=== PATIENT | female | born 1990 | race Caucasian/White ===

== ENCOUNTER 2017-10-02 09:52 | Emergency (ER) | payer OTHER, SELFPAY ==
[2017-10-02 10:07] VITALS: BP 99/43; PULSE 74; RESP 18; TEMP 36.7; O2SAT 99; BMI 39.9
--- NOTE | 2017-10-02 10:23 | XR_ITS ---
XR chest 2V HISTORY: ITS.REASON: NEAR SYNCOPE, HYPOTENSION ORDERING PHYSICIAN: Asael Wu MD PATIENT AGE: 27 years COMPARISON: 01/11/2017 FINDINGS: The cardiomediastinal silhouette and pulmonary vascularity are within normal limits. The lungs are clear without infiltrates, suspicious nodules, or pleural effusions. No acute bony abnormalities. IMPRESSION: Negative chest, no acute finding
--- NOTE | 2017-10-02 10:26 | PC.NURSE ---
ORTHOSTATIC VITAL SIGNS REPORTED TO MD SITTING BP 112/61 HR 80 STANDING BP 110/62 HR 90 SUPINE BP 99/43 HR 72
[2017-10-02 10:29] LABS: Microscopic, Urine URINE MICROSCOPIC (MICROSCOPIC)
--- NOTE | 2017-10-02 10:30 | HMH.EDGENADL ---
ED Disposition Clinical Impression: Dizziness Disposition: Home, Self-Care Condition on Discharge: Good Instructions: DI for Dizziness-Nonvertigo Additional Instructions: Do not take propranolol until you speak with your physician. Call them today and let them know that your blood pressure is borderline low and you are dizzy and have them determine whether they want to continue this medication. Rest today, drink plenty of fluids. Forms: Work/School Release - Critical Care Critical Care Time: No Attestation: On 10/02/17, the high probability of a clinically significant, sudden or life threatening deterioration of the following system(s) required my full and direct attention, intervention and personal management. The time I documented below is in addition to time spent performing reported procedures but includes the following listed in this critical care notation. Medical Decision Making Vital Signs: 10/02/17 10:07 10/02/17 11:56 Temperature 98.1 F 98.2 F Temperature Source Oral Oral Pulse Rate [Right Brachial] 74 58 L Respiratory Rate 18 16 Blood Pressure [Right Arm] 99/43 111/53 Blood Pressure Mean [Right Arm] 61 72 Blood Pressure Source [Right Arm] Automatic Cuff Automatic Cuff Blood Pressure Position [Right Arm] Sitting Sitting 02 Sat by Pulse Oximetry 99 98 Oxygen Delivery Method Room Air Room Air - Lab Data Lab Results 10/02/17 10:21: Urine Color Yellow, Urine Appearance Sl cloudy, Urine pH 5.5, Ur Specific [place] >= 1.030, Urine Protein 1+, Urine Glucose (UA) Negative, Urine Ketones 1+, Urine Blood Negative, Urine Nitrate Negative, Urine Bilirubin Negative, Urine Urobilinogen 0.2, Ur Leukocyte Esterase Negative, Urine RBC Occasional, Urine WBC Occasional, Ur Squamous Epith Cells 5-10, Urine Bacteria 1+, Hyaline Casts 10-20, Urine Mucus Trace 10/02/17 10:21: WBC 9.2, RBC 4.69, Hgb 13.3, Hct 40.6, MCV 86.7, MCH 28.5, MCHC 32.8, RDW 13.7, Plt Count 285, MPV 8.5, Neut % (Auto) 64.7, Lymph % (Auto) 28.3, [place] % (Auto) 5.1, Eos % (Auto) 1.3, Baso % (Auto) 0.5, Neut # (Auto) 5.9, Lymph # (Auto) 2.6, [place] # (Auto) 0.5, Eos # (Auto) 0.1, Baso # (Auto) 0.1 10/02/17 10:21: Sodium 141, Potassium 3.6, Chloride 105, Carbon Dioxide 27, Anion Gap 12.6, BUN 18, Creatinine 0.99, Estimated Creat Clear 154, Estimated GFR 67, Est GFR ( Amer) 81, Glucose 89, Calcium 9.1, Total Bilirubin 0.3, AST 14 L, ALT 23, Alkaline Phosphatase 51, Total Protein 6.8, Albumin 3.5, Globulin 3.3 H, Albumin/Globulin Ratio 1.1 10/02/17 10:21: Urine HCG, Qual Negative 10/02/17 10:21: Total Creatine Kinase 30, CK-MB (CK-2) < 0.5, CK-MB (CK-2) Rel Index 1.7, Troponin I < 0.02 10/02/17 10:21: TSH 2.54, Free T4 1.30 Result diagrams: 10/02/17 10:21 10/02/17 10:21 Orders (Tests/Meds): ED MEDICATIONS Discontinued Medications Generic Name Dose Route Start Last Admin Trade Name Freq PRN Reason Stop Dose Admin Sodium Chloride 1,000 mls @ 999 mls/hr 10/02/17 10:30 10/02/17 10:29 Sod Chloride 0.9% 1000ml Bag IV 10/02/17 11:30 999 mls/hr .[id number] REED Administration ORDERS Category Date Time Status 12-lead EKG Request [ECG Request by /Jose Ramon] Stat Y 10/02/17 10:18 Stop Req - Radiology Data #1 Image(s): Chest Image Reviewed: Yes I reviewed the patient's radiology results Preliminary Findings: Normal/NAD - CT Data CT Scan: Head Time Received: 12:[address] Reviewed: Yes: I have viewed the radiologist's interpretation Preliminary Findings: Normal/NAD - ECG Data Tracing #1 EKG interpreted by Asale Wu MD: Rhythm: sinus Rate: 70 [place]: normal Ectopy: none Conduction: normal ST Segment Changes: none T Wave Changes: none Q Waves: none No evidence of acute ischemia or injury Normal EKG - Cm Inquiry Pt receiving controlled substance: No General Adult HPI - General Chief complaint: Weakness Stated complaint: dizzy hot cold Mode of Arrival: Family Vehicle Limitations: No Limi
[2017-10-02 10:32] LABS: Appearance,Urine SL CLOUDY (Clear); Blood, Urine Negative (Negative); Color,Urine YELLOW (Yellow); Glucose,Urine (UA) Negative (Negative); Ketones,Urine 1+ (Negative); Leukocyte Esterase,Urine Negative (Negative); Nitrate,Urine Negative (Negative); PH,Urine 5.5 (5.0-8.5); Protein,Urine 1+ (Negative); Specific Gravity, Urine >= 1.030 (1.005-1.030); Urobilinogen,Urine 0.2 EU/dl (0.2)
[2017-10-02 10:36] LABS: Basophils # 0.1 K/mm3 (0-0.2); Basophils % 0.5 % (0.1-2.0); Eosinophils # 0.1 K/mm3 (0.0-0.4); Eosinophils % 1.3 % (0.1-12.0); Hematocrit 40.6 % (37.0-47.0); Hemoglobin 13.3 g/dL (12.2-16.2); Lymphocytes # 2.6 K/mm3 (0.7-4.5); Lymphocytes % 28.3 K/mm3 (10-50); Mean Corpuscular HGB Conc 32.8 g/dL (31.8-35.4); Mean Corpuscular Hemoglobin 28.5 pg (27.0-31.2); Mean Corpuscular Volume 86.7 fl (81-99); Mean Platelet Volume 8.5 fl (7.4-10.4); Monocytes # 0.5 K/mm3 (0.1-1.0); Monocytes % 5.1 % (1.7-9.3); Neutrophils # 5.9 K/mm3 (1.8-7.8); Neutrophils % 64.7 % (37.0-80.0); Platelet Count 285 K/mm3 (142-424); Red Blood Count 4.69 M/mm3 (4.20-5.40); Red Cell Distribution Width 13.7 % (11.5-17.5); White Blood Count 9.2 K/mm3 (4.8-10.8)
[2017-10-02 10:42] LABS: Urine Pregnancy, HCG Qual. Negative (Negative)
[2017-10-02 10:55] LABS: Bilirubin,Urine Negative (Negative)
[2017-10-02 10:56] LABS: Bacteria,Urine 1+ /lpf; Mucus,Urine Trace /lpf; RBC,Urine Occasional #/hpf (0-3); WBC,Urine Occasional #/hpf (0-3)
--- NOTE | 2017-10-02 11:04 | CT_ITS ---
CT head/brain wo con HISTORY: ITS.REASON: NEAR SYNCOPE ORDERING PHYSICIAN: Asael Wu MD PATIENT AGE: 27 years COMPARISON: None TECHNIQUE: Axial images obtained without contrast. Brain and bone windows reviewed. FINDINGS: No midline shift, mass effect, intracranial hemorrhage, hydrocephalus, or extra-axial fluid collection is evident. The calvarium has an unremarkable appearance. No mastoid effusion. No sinus air-fluid levels.. IMPRESSION: Negative CT head without contrast. No acute finding.
[2017-10-02 11:06] LABS: Alanine Aminotransferase 23 U/L (12-78); Albumin Level 3.5 gm/dL (3.4-5.0); Albumin/Globulin Ratio 1.1 (1.1-1.8); Alkaline Phosphatase 51 U/L (46-116); Anion Gap 12.6 mEq/L (5-15); Aspartate Amino Transferase 14 U/L (15-37); Bilirubin,Total 0.3 mg/dL (0.2-1.0); Blood Urea Nitrogen 18 mg/dL (7-18); Calcium 9.1 mg/dL (8.5-10.1); Carbon Dioxide 27 mmol/L (21.0-32.0); Chloride 105 mmol/L (98-107); Creatinine Clearance Estimated 154 mL/min (0-300); Creatinine,Serum 0.99 mg/dL (0.55-1.02); Estimated Glomerular Filt Rate 67 ml/min (>60); GFR (African American) 81 ML/MIN (>60); Globulin 3.3 gm/dl (1.3-3.2); Glucose 89 mg/dL (74-106); Potassium 3.6 mmoL/L (3.5-5.1); Sodium 141 mmol/L (136-145); Total Protein,Serum 6.8 gm/dL (6.4-8.2)
[2017-10-02 11:08] LABS: Troponin I < 0.02 ng/ml (0.00-0.06)
[2017-10-02 11:28] LABS: Creatine Kinase 30 U/L (26-192)
[2017-10-02 11:31] LABS: CKMB Relative Index 1.7 U/L (0-4.0); Creatine Kinase MB < 0.5 mg/ml (0.0-3.6)
[2017-10-02 11:56] VITALS: BP 111/53; PULSE 58; RESP 16; TEMP 36.8; O2SAT 98
[2017-10-02 11:57] LABS: Thyroid Stimulating Hormone 2.54 uIU/ml (0.358-3.740)
[2017-10-02 12:30] VITALS: BP 106/59; PULSE 65; RESP 16; O2SAT 100
== END 2017-10-02 12:36 | disposition home or self-care (01) ==
PROVIDERS: Emergency Provider Emergency Medicine; Family Provider Physician Assistant
DX: R42 Dizziness and giddiness (principal); I10 Essential (primary) hypertension; Z88.0 Allergy status to penicillin; Z88.2 Allergy status to sulfonamides
CPT/HCPCS: 70450; 71046; 80053; 81001; 81025; 82550; 82553; 84439; 84443; 84484; 85025; 93005; 93041; 96365; 96366; 99284

== ENCOUNTER → 2017-12-24 11:29 | Outpatient (CLI) | payer OTHER, SELFPAY | PROVIDERS: PCP Physician Assistant; Visit Provider Physician Assistant | DX: I95.9 Hypotension, unspecified (principal) | CPT/HCPCS: 93225; 93226 ==

== ENCOUNTER → 2018-04-29 14:30 | Outpatient (REF) | payer BC, SELFPAY ==
[2018-04-30 14:12] LABS: Basophils % 0.6 % (0.1-2.0); Eosinophils # 0.1 K/mm3 (0.0-0.4); Eosinophils % 1.9 % (0.1-12.0); Hematocrit 38.7 % (37.0-47.0); Hemoglobin 12.7 g/dL (12.2-16.2); Lymphocytes # 1.6 K/mm3 (0.7-4.5); Lymphocytes % 26.4 K/mm3 (10-50); Mean Corpuscular HGB Conc 32.8 g/dL (31.8-35.4); Mean Corpuscular Hemoglobin 28.6 pg (27.0-31.2); Mean Corpuscular Volume 86.9 fl (81-99); Mean Platelet Volume 7.8 fl (7.4-10.4); Monocytes # 0.2 K/mm3 (0.1-1.0); Monocytes % 3.5 % (1.7-9.3); Neutrophils # 4.1 K/mm3 (1.8-7.8); Neutrophils % 67.6 % (37.0-80.0); Platelet Count 257 K/mm3 (142-424); Red Blood Count 4.46 M/mm3 (4.20-5.40); Red Cell Distribution Width 14.5 % (11.5-17.5); White Blood Count 6.1 K/mm3 (4.8-10.8)
[2018-04-30 14:41] LABS: Alanine Aminotransferase 12 U/L (12-78); Albumin/Globulin Ratio 0.9 (1.1-1.8); Alkaline Phosphatase 46 U/L (46-116); Anion Gap 11.7 mEq/L (5-15); Aspartate Amino Transferase 7 U/L (15-37); Bilirubin,Total 0.2 mg/dL (0.2-1.0); Blood Urea Nitrogen 14 mg/dL (7-18); Calcium 8.5 mg/dL (8.5-10.1); Carbon Dioxide 24 mmol/L (21.0-32.0); Chloride 105 mmol/L (98-107); Estimated Glomerular Filt Rate 100 ml/min (>60); GFR (African American) 121 ML/MIN (>60); Globulin 3.3 gm/dl (1.3-3.2); Glucose 68 mg/dL (74-106); Potassium 3.7 mmoL/L (3.5-5.1); Sodium 137 mmol/L (136-145); T4 (Thyroxine) 16.7 ug/dl (4.7-13.3); Thyroid Stimulating Hormone 1.12 uIU/ml (0.358-3.740); Total Protein,Serum 6.3 gm/dL (6.4-8.2)
[2018-05-02 08:27] LABS: Vitamin D 25 Hydroxy 31.8 ng/mL (30.0-100.0)
== END ==
LOC: LAB 14:30
PROVIDERS: Visit Provider Physician Assistant
DX: E03.9 Hypothyroidism, unspecified (principal)
CPT/HCPCS: 80053; 82652; 83036; 84436; 84443; 85025